=== PATIENT | female | born 1965 | race Caucasian/White ===

== ENCOUNTER 2019-01-31 07:56 | Emergency (ER) | payer MEDICAID ==
[~2019-01-31] VITALS: Ht 157.5 cm; Wt 113.6 kg
[2019-01-31] MEDS ORDERED: LEVO25TA9 PO (08:09)
[2019-01-31] MEDS ORDERED: ATOR20TA86 PO (08:09)
[2019-01-31] MEDS ORDERED: BENZ1TAB10 PO (08:09)
[2019-01-31] MEDS ORDERED: ARIP5TAB8 PO (08:09)
[2019-01-31] MEDS ORDERED: HYDR25TA PO (08:09)
[2019-01-31] MEDS ORDERED: LISI-662 PO (08:09)
[2019-01-31] MEDS ORDERED: BUSP10TA23 PO (08:09)
[2019-01-31] MEDS ORDERED: TRAZ-219 PO (08:09)
[2019-01-31] MEDS ORDERED: DULO20CA30 PO (08:09)
[2019-01-31] MEDS ORDERED: IPRATROPIUM BROMIDE 0.5 MG/2.5 ML NEB SOLUTION NEB ONE (08:45)
[2019-01-31] MEDS ORDERED: ALBUTEROL SULFATE 2.5 MG/0.5 ML NEB SOLUTION NEB ONE (08:45)
[2019-01-31 09:44] VITALS: BP 102/64
== END 2019-01-31 09:57 | disposition home or self-care (01) ==
LOC: EMS 07:57
DX: J44.9 Chronic obstructive pulmonary disease, unspecified (principal); F17.210 Nicotine dependence, cigarettes, uncomplicated; I10 Essential (primary) hypertension; E03.9 Hypothyroidism, unspecified; F20.9 Schizophrenia, unspecified; E78.00 Pure hypercholesterolemia, unspecified; Z90.710 Acquired absence of both cervix and uterus; Z79.899 Other long term (current) drug therapy
CPT/HCPCS: 94640; 99406